=== PATIENT | male | born 1985 | race Caucasian/White ===

== ENCOUNTER 2019-08-11 22:34 | Emergency (ER) | payer SELFPAY ==
[2019-08-11] MEDS ORDERED: Lidocaine/EPINEPHrine/Tetracaine Soln 1 ML TOP ONE (23:10)
[2019-08-11] MEDS ORDERED: Diphtheria,Pertussis(Acell),Tetanus Vaccine 0.5 ML Syringe IM ONE (23:13)
[2019-08-11] MEDS ORDERED: Acetaminophen 325 MG Tab PO ONE (23:31)
[2019-08-11] MEDS ORDERED: Ketorolac 60 MG/2 ML SDV IM ONE (23:31)
--- NOTE | 2019-08-12 00:13 | EDM.PDOC ---
ED HPI GENERAL MEDICAL PROBLEM - General Chief Complaint: Lower Extremity Injury/Pain Stated Complaint: FEET INJURY Time Seen by Provider: 08/11/19 23:06 Source of Information: Reports: Patient, RN Notes Reviewed - History of Present Illness INITIAL COMMENTS - FREE TEXT/NARRATIVE: 34-year-old male suffered laceration injuries to the plantar aspect right foot. States he was in his truck sleeping, was told that he had to get out and " fuel his truck". He cut his foot on some [place] metal associated with the truck. He slipped, fell injuring left ankle and left shoulder. There was no LOC. No head neck or back discomfort. No chest pain or difficulty breathing. He normally wears boots when working but because he was resting was wearing sandals at that time. Last tetanus immunization about 8 years ago. Bilateral Foot Pain Score (Numeric/FACES): 7 - Related Data Allergies Allergy/AdvReac Type Severity Reaction Status Date / Time olanzapine [From Zyprexa] Allergy Hallucinati Verified 08/11/19 22:56 ons propoxyphene Allergy Hives Verified 08/11/19 22:56 [From Darvocet-N] Past Medical History Psychiatric History: Reports: Anxiety - Past Surgical History GI Surgical History: Reports: Cholecystectomy Musculoskeletal Surgical History: Reports: Shoulder Replacement, Shoulder Surgery, Other (See Below) Other Musculoskeletal Surgeries/Procedures:: broken wrist Social & Family History - Tobacco Use Smoking Status *Q: Current Every Day Smoker Years of Tobacco use: 20 Packs/Tins Daily: 0.5 Second Hand Smoke Exposure: Yes - Caffeine Use Caffeine Use: Reports: Coffee, Energy Drinks - Recreational Drug Use Recreational Drug Use: No Review of Systems - Review of Systems Review Of Systems: See Below Constitutional: Reports: No Symptoms Eyes: Reports: No Symptoms Ears: Reports: No Symptoms Mouth/Throat: Reports: No Symptoms Respiratory: Denies: Shortness of Breath Cardiovascular: Denies: Chest Pain GI/Abdominal: Denies: Nausea, Vomiting Musculoskeletal: Reports: Foot Pain, Joint Pain (Left shoulder, left ankle) Skin: Reports: Other (Full skin laceration injuries right foot) Neurological: Denies: Numbness, Tingling ED EXAM, GENERAL - Physical Exam Exam: See Below General Appearance: Alert, Mild Distress Eye Exam: Bilateral Eye: PERRL Head: Atraumatic Neck: Supple Respiratory/Chest: No Respiratory Distress, Lungs Clear, Normal Breath Sounds Extremities: Other (Depaul superficial laceration injuries plantar aspect right foot first and second toes, lacerations are shallow, non-gaping with a very small 1/2 cm area of superficial skin avulsion., Foot is nontender no bony tenderness, there is left shoulder tenderness anteriorly, pain with motion, no visible deformity, there is tenderness of the medial left ankle with very minimal swelling, lateral ankle and remainder of leg nontender, Achilles nontender and no palpable defect) Neurological: Alert, Oriented, Normal Reflexes, No Motor/Sensory Deficits Course - Vital Signs Last Recorded V/S: Last Vital Signs Temp 98.4 F 08/11/19 22:52 Pulse 94 08/11/19 22:52 Resp 20 08/11/19 22:52 BP Pulse Ox 98 08/11/19 22:52 - Orders/Labs/Meds Orders: Active Orders 24 hr Category Date Time Status Vaccines to be Administered [RC] PER UNIT ROUTINE Care 08/11/19 23:14 Active Ankle Min 3V Lt [CR] Stat Exams 08/11/19 23:14 Taken Shoulder Comp Lt [CR] Stat Exams 08/11/19 23:14 Taken Meds: Medications Discontinued Medications Generic Name Dose Route Start Last Admin Trade Name Akiko PRN Reason Stop Dose Admin Acetaminophen 975 mg 08/11/19 23:31 08/11/19 23:42 Tylenol PO 08/11/19 23:32 975 mg NOW ONE Administration Diphtheria/Tetanus/Acell Pertussis 0.5 ml 08/11/19 23:13 08/12/19 00:24 Adacel IM 08/11/19 23:14 0.5 ml .ONCE ONE Administration Ketorolac Tromethamine 60 mg 08/11/19 23:31 08/11/19 23:42 Toradol IM 08/11/19 23:32 60 mg ONETIME ONE Administration Lidocaine/Tetracaine 1 ml 08/11/19 23:10 08/11/19 23:43 Let Soln TOP 08/11/19 23:11 1 ml ONETIME ONE Administration - Re-Assessments/Exams Free Text/Narrative Re-Assessment/Exam: 08/12/19 01:22 Strays of shoulder and ankle are negative for fracture. Discharge instructions as documented. Foot was cleaned, sutures not clinically indicated, dry sterile pressure dressing applied. Departure - Departure Time of Disposition: 00:10 Disposition: Home, Self-Care 01 Condition: Fair Clinical Impression: Laceration of foot, Medial ankle sprain, Left shoulder strain - Discharge Information Instructions: Ankle Sprain, Laceration Care, Adult, [id number] Referrals: PCP,Not In Area [Primary Care Provider] - Forms: ED Department Discharge Additional Instructions: Ice packs alternating with heat as needed, laceration care instr. Dressing change R foot once or twice daily, have rechecked any sign of infection. Tylenol alternating with ibuprofen as needed. Follow up Orthopedist if L shoulder pain not resolving within 7 to 10 days as expected. Sepsis Event Note - Evaluation Sepsis Screening Result: No Definite Risk - Focused Exam Vital Signs: Vital Signs Temp Pulse Resp Pulse Ox 08/11/19 22:52 98.4 F 94 20 98 Date Exam was Performed: 08/12/19 Time Exam was Performed: 01:17 - My Orders Last 24 Hours: My Active Orders 08/11/19 23:14 Vaccines to be Administered [RC] PER UNIT ROUTINE Ankle Min 3V Lt [CR] Stat Shoulder Comp Lt [CR] Stat - Assessment/Plan Last 24 Hours: My Active Orders 08/11/19 23:14 Vaccines to be Administered [RC] PER UNIT ROUTINE Ankle Min 3V Lt [CR] Stat Shoulder Comp Lt [CR] Stat
--- NOTE | 2019-08-12 06:59 | CR ---
Left shoulder: Three views of the left shoulder were obtained. Comparison: No previous left shoulder study. Glenohumeral joint and acromioclavicular joint appear within normal limits. No fracture, dislocation or other bony abnormality is seen. Impression: 1. No abnormality is appreciated on left shoulder study. Diagnostic code #1 This report was dictated in [place] Standard Time
--- NOTE | 2019-08-12 06:59 | CR ---
Left ankle: Four views of the left ankle were obtained. Comparison: No previous ankle exam. Ankle mortise is symmetric. No fracture, dislocation or other bony abnormality is identified. Impression: 1. No abnormality is identified on left ankle exam. Diagnostic code #1 This report was dictated in [place] Standard Time
== END 2019-08-12 00:29 | disposition home or self-care (01) ==
LOC: JD.ED 22:34
DX: S91.311A Laceration without foreign body, right foot, initial encounter (principal); S46.912A Strain of unspecified muscle, fascia and tendon at shoulder and upper arm level, left arm, initial encounter; S93.402A Sprain of unspecified ligament of left ankle, initial encounter; F17.210 Nicotine dependence, cigarettes, uncomplicated; Z88.8 Allergy status to other drugs, medicaments and biological substances; Z23 Encounter for immunization; W26.8XXA Contact with other sharp object(s), not elsewhere classified, initial encounter; Y93.89 Activity, other specified; Y92.812 Truck as the place of occurrence of the external cause
CPT/HCPCS: 73030; 73610; 90471; 90715; 96372; 99283; A9270; J1885